=== PATIENT | male | born 1950 | race Caucasian/White ===

== ENCOUNTER 2018-10-31 07:18 | Emergency (ER) | payer OTHER ==
[2018-10-31 07:29] VITALS: BP 143/79
--- NOTE | 2018-10-31 07:43 | UC ---
Hand/Wrist HPI - HPI Summary HPI Summary: ABOUT 2 WEEKS AGO PATIENT TRIPPED AND FELL ON THE DIRT. LANDED ON HIS RIGHT KNEE AND LEFT WRIST. SYMPTOMS HAVE MOSTLY IMPROVED BUT PATIENT REPORTS PERSISTENT PAIN IN HIS ANTERIOR LEFT WRIST WHEN HE LEANS ON IT AND PERSISTENT POINT TENDERNESS RIGHT ANTERIOR KNEE WITH SOME MILD SWELLING. ONLY HURTS WHEN HE PUSHES ON THAT PARTICULAR SPOT OR KNEELS DOWN. - History Of Current Complaint Chief Complaint: UCUpperExtremity Stated Complaint: L WRIST INJURY Time Seen by Provider: 10/31/18 07:32 Hx Obtained From: Patient Onset/Duration: Sudden Onset, Lasting Weeks, Still Present Severity Initially: Moderate Severity Currently: Mild Pain Intensity: 0 Pain Scale Used: 0-10 Numeric Character Of Pain: Sharp Aggravating Factor(s): Other - PALPATION Alleviating Factor(s): Rest Associated Signs And Symptoms: Positive: Swelling Related History: Dominant Hand Right - Allergies/Home Medications Allergies/Adverse Reactions: Allergies Allergy/AdvReac Type Severity Reaction Status Date / Time No Known Allergies Allergy Verified 10/31/18 07:29 Home Medications: Home Medications Rosuvastatin Calcium 5 mg PO DAILY 10/31/18 [History Confirmed 10/31/18] PMH/Surg Hx/FS Hx/Imm Hx Endocrine History: Dyslipidemia - Surgical History Surgical History: Yes Surgery Procedure, Year, and Place: LEFT knee sugery. 2 hernia repairs - Family History Known Family History: Positive: Non-Contributory - Social History Alcohol Use: Occasionally Substance Use Type: None Smoking Status (MU): Never Smoked Tobacco Review of Systems All Other Systems Reviewed And Are Negative: Yes Constitutional: Positive: Negative Skin: Positive: Negative Respiratory: Positive: Negative Cardiovascular: Positive: Negative Gastrointestinal: Positive: Negative Musculoskeletal: Positive: Arthralgia, Edema Physical Exam Triage Information Reviewed: Yes Appearance: Well-Appearing, No Pain Distress, Well-Nourished Vital Signs: Initial Vital Signs Temp 98.1 F 10/31/18 07:24 Pulse 65 10/31/18 07:24 Resp 16 10/31/18 07:24 BP 143/79 10/31/18 07:24 Pulse Ox 96 10/31/18 07:24 Vital Signs Reviewed: Yes Eyes: Positive: Conjunctiva Clear ENT: Positive: Hearing grossly normal Neck: Positive: Supple Respiratory: Positive: No respiratory distress, No accessory muscle use Cardiovascular: Positive: Pulses Normal Abdomen Description: Positive: Soft Musculoskeletal: Positive: ROM Intact - both wrist and knee, Edema @ - MILD EDEMA RIGHT KNEE, Other: - LEFT WRIST: NO SNUFF BOX TENDERNESS. MILD DIFFUSE TENDERNESS OVER THE VOLAR ASPECT OF WRIST. LEFT KNEE: NO JOINT LINE TENDERNESS. MCL AND LCL INTACT TO STRESS TESTING. NEG LACHMANS. NEG DRAWERS SIGNS. NEG MCMURRAYS. NO TENDERNESS OVER PATELLAR LIGAMENT OR QUADRICEPS TENDON. POINT TENDERNESS ANTERIOR PATELLA Diagnostics - Radiology LEFT WRIST XRAYS Radiology Interpretation Completed By: Radiologist Summary of Radiographic Findings: Mild irregularity in the cortical contour of the triquetrum on the lateral view. suspicious for potential nondisplaced fracture. RIGHT KNEE XRAYS Radiology Interpretation Completed By: Radiologist Summary of Radiographic Findings: 1. Osteoarthritis: Mild osteophytosis. Mild medial joint space narrowing. 2. Negative for joint effusion, fracture or malalignment. 3. Dystrophic ossification at the level of the medial collateral ligament origin from the medial femoral condyle consistent with sequela of remote injury. 4. Peripheral vascular calcifications. 5. Unremarkable soft tissue contours. Hand/Wrist Course/Dx - Differential Dx/Diagnosis Provider Diagnosis: Fracture, triquetral bone, Right knee pain Discharge - Sign-Out/Discharge Documenting (check all that apply): Patient Departure All imaging exams completed and their final reports reviewed: Yes - Discharge Plan Condition: Stable Disposition: HOME Patient Education Materials: Wrist Fracture in Adults (ED), Knee Pain (ED) Referrals: Woodrow Cordoba MD [Primary Care Provider] - If Needed Additional Instructions: X-RAYS OF YOUR LEFT WRIST SHOWED A POSSIBLE FRACTURE OF THE TRIQUETRUM. KEEP THE WRIST SPLINT ON UNTIL SEEN BY ORTHO. OKAY TO REMOVE FOR QUICK SHOWER. RIGHT KNEE X-RAY WITH SOME DEGENERATIVE CHANGE BUT NO ACUTE INJURY. YOUR RESIDUAL PAIN SHOULD IMPROVE WITH MORE TIME. AVOID KNEELING AND ANY OTHER ACTIVITY THAT WORSENS YOUR DISCOMFORT. I WOULD CONSIDER WEARING A SOFT KNEE BRACE FOR COMPRESSION AND SUPPORT. OTC MEDICATIONS NEEDED. KEEP YOUR ORTHOPEDIC APPOINTMENT NEXT WEEK. - Billing Disposition and Condition Condition: STABLE Disposition: Home
== END 2018-10-31 09:20 | disposition home or self-care (01) ==
LOC: UCEAST 07:18
DX: S62.112A Displaced fracture of triquetrum [cuneiform] bone, left wrist, initial encounter for closed fracture (principal); W18.30XA Fall on same level, unspecified, initial encounter; Y92.9 Unspecified place or not applicable; M25.561 Pain in right knee
CPT/HCPCS: 99212; G0463

== ENCOUNTER 2023-11-28 19:24 | Observation (INO) ==
[2023-11-28 20:06] LABS: ABS Lymphocytes 1.6 10^3/uL (1.0-4.8); ABS Monocytes 0.4 10^3/uL (0.0-1.1); ABS Nucleated RBC 0.01 10^3/ul; Eosinophil % 0.7 %; Hematocrit 41.9 % (38-53); Lymphocyte % 26.4 %; Mean Corpuscular Hemoglobin 30.5 pg (27-33); Mean Corpuscular Hgb Conc 33.4 g/dL (31-36); Mean Corpuscular Volume 91.4 fL (80-97); Mean Platelet Volume 8.3 fL (7.5-11.2); Nucleated Red Blood Cells % 0.1 %/100WBC (0.0-0.8); Platelet Count 175 10^3/uL (150-450); Red Blood Count 4.58 10^6/uL (4.06-5.63); Red Cell Distribution Width 13.4 % (12-17); White Blood Count 6.1 10^3/uL (3.6-10.2)
[2023-11-28 20:11] LABS: INR 1.16 (0.83-1.13)
[2023-11-28 20:52] LABS: Albumin 4.3 g/dL (3.2-5.2); Albumin/Globulin Ratio 1.8 (1-3); Calcium 9.3 mg/dL (8.6-10.3); Creatinine, Serum 0.88 mg/dL (0.67-1.17); Globulin 2.4 g/dL (2-4); Total Bilirubin 0.7 mg/dL (0.2-1.0); Total Protein 6.7 g/dL (6.4-8.9); eGFR CKD-EPI 89.7 (>60)
[2023-11-28 21:21] LABS: Urine Appearance Clear; Urine Bilirubin Negative (Negative); Urine Blood Negative (Negative); Urine Color Colorless; Urine Glucose Negative (Negative); Urine Ketones Negative (Negative); Urine Nitrite Negative (Negative); Urine Protein Negative (Negative); Urine Specific Gravity 1.008 (1.002-1.030); Urine Urobilinogen Negative (Negative); Urine pH 6.5 (5.0-8.0)
[2023-11-28 23:27] LABS: High Sensitivity Troponin 1 Hr 23 pg/mL (<20)
[2023-11-29 01:32] LABS: High Sensitivity Troponin 3 Hr 22 pg/mL (<20)
[2023-11-29] MEDS: Enoxaparin 40 MG/0.4 ML SYR SUBCUT SCH (08:31)
[2023-11-29] MEDS: CMCS: Dutasteride 0.5 mg CAP (NF) PO SCH (08:31)
[2023-11-29] MEDS: CMCS: Alfuzosin ER 10 mg TAB.ER (NF) 10 MG TAB.ER PO SCH (08:31)
[2023-11-29] MEDS: COQ10 200 MG PO SCH (08:32)
[2023-11-29] MEDS ORDERED: Lidocaine 1% MPF 5 ML VIAL ONE (11:25)
[2023-11-29 12:43] VITALS: BP 159/91
== END 2023-11-29 13:30 | disposition home or self-care (01) ==
LOC: EDHOLD 19:24 → ED 19:24 → EDHOLD 11-29 12:42
PROVIDERS: ADMIT Student in an Organized Health Care Education/Training Program; ATTEND Internal Medicine